=== PATIENT | female | born 1965 | race Caucasian/White ===

== ENCOUNTER 2018-01-12 06:04 | Inpatient (IN) | payer BC, OTHER ==
[2018-01-08 10:20] VITALS: BMI 28.1
[2018-01-12] MEDS ORDERED: oxyCODONE HCL 10 MG SUSTAINED ACTING TABLET PO STA (06:22)
[2018-01-12] MEDS ORDERED: GABAPENTIN 300 MG CAPSULE (FP) PO STA (06:22)
[2018-01-12] MEDS ORDERED: LIDOCAINE 1%/EPI 1:100000 (20 ML MULTI DOSE VIAL) ONE (07:10)
[2018-01-12] MEDS ORDERED: oxyCODONE HCL 10 MG SUSTAINED ACTING TABLET ONE (07:10)
[2018-01-12] MEDS ORDERED: THROMBIN (BOVINE) 5,000 UNIT VIAL TP ONE ×2 (07:10→09:28)
[2018-01-12] MEDS ORDERED: GABAPENTIN 300 MG CAPSULE (FP) ONE (07:11)
--- NOTE | 2018-01-12 07:31 | HP ---
History & Physical Update - History History: No Change - Physical Physical: No Change - Assessment Assessment: No Change - Plan Plan: No Change (Initial H&P is located in patient's paper chart. No new complaints or medications. Here today for repair of her L4/5 spondylolithesis ( Lumbar back pain radiating down bilat LE (L>R).)
[2018-01-12] MEDS ORDERED: DEXAMETHASONE SOD PHOSPHATE 4 MG/1 ML VIAL ONE (07:58)
[2018-01-12] MEDS ORDERED: ONDANSETRON 4 MG/2 ML VIAL ONE (07:58)
[2018-01-12] MEDS ORDERED: ceFAZolin SODIUM 1 GM VIAL ONE (07:58)
[2018-01-12] MEDS ORDERED: fentaNYL CITRATE 250 MCG/5 ML VIAL ONE (07:59)
[2018-01-12] MEDS ORDERED: PROPOFOL 20 ML ONE (07:59)
[2018-01-12] MEDS ORDERED: MIDAZOLAM HCL 2 MG/2 ML SINGLE DOSE VIAL ONE ×3 (07:59→09:50)
[2018-01-12] MEDS ORDERED: ROCURONIUM BROMIDE 50 MG/5 ML VIAL ONE (07:59)
[2018-01-12] MEDS ORDERED: SUCCINYLCHOLINE CHLORIDE 200 MG/10 ML VIAL ONE (08:00)
[2018-01-12] MEDS ORDERED: BUPIVACAINE HCL/PF (5 MG/ML) 30 ML VIAL IJ ONE (08:06)
[2018-01-12] MEDS ORDERED: BUPIVACAINE LIPOSOME/PF (EXPAREL) 266 MG/20 ML VIAL ONE (08:06)
[2018-01-12] MEDS ORDERED: LIDOCAINE 1%/EPI 1:100000 (50 ML MULTI DOSE VIAL) INF ONE (09:00)
[2018-01-12] MEDS ORDERED: GELATIN SPONGE,ABSORBABLE 1 GM PACKET TP ONE (09:29)
--- NOTE | 2018-01-12 10:44 | OP ---
Operative Note - Note: Operative Date: 01/12/18 Pre-Operative Diagnosis: L4/5 spondylolithesis, radiculopathy Operation: L4/5 TLIF, allograft implant, neuro monitoring Post-Operative Diagnosis: Same as Pre-op Surgeon: Fabian Pete Shop Hand: Cecil Lord Anesthesiologist/BOAT ENGINES INSTALLER: Delmer Patton (TLIF) Anesthesia: Spinal Estimated Blood Loss (mls): 20 Fluid Volume Replaced (mls): 1,000 Operative Report Dictated: Yes
--- NOTE | 2018-01-12 10:45 | SURG ---
Surgery Gambling Floor Supervisor Note Gambling Floor Supervisor: Cecil Lord PA-C Date of Service: 01/12/18 Diagnosis: L4/5 spondylolithesis, radiculopathy Procedure: Transforaminal lumbar interbody fusion/decompression/instrumentation L4/5, allograft implant, neuro monitoring I was present for the entirety of the operative procedure. For further detail, please refer to operative report. Visit type - Case Type Case Type: Scheduled - New patient This patient is new to me today: Yes Date on this admission: 01/12/18
[2018-01-12] MEDS ORDERED: ACETAMINOPHEN 325 MG TABLET (FP) PO SCH (11:00)
[2018-01-12] MEDS ORDERED: ACETAMINOPHEN 325 MG TABLET (FP) ONE (11:18)
[2018-01-12] MEDS ORDERED: ONDANSETRON 4 MG/2 ML VIAL IVPUSH PRN (11:26)
[2018-01-12] MEDS ORDERED: oxyCODONE HCL 5 MG TABLET PO PRN (11:26)
[2018-01-12] MEDS ORDERED: LACTATED RINGERS SOLUTION 1,000 ML IV SCH ×2 (11:30→14:30)
[2018-01-12 12:36] VITALS: TEMP 97.5
[2018-01-12] MEDS ORDERED: CEFAZOLIN 1 GM/D5W 1 GM/50 ML BAG ONE (14:26)
[2018-01-12 14:51] VITALS: BP 129/75; PULSE 89
[2018-01-12] MEDS ORDERED: CEFAZOLIN 1 GM/D5W 1 GM/50 ML BAG IVPB ONE (15:00)
[2018-01-12] MEDS ORDERED: traMADol HCL 50 MG TABLET PO SCH (18:00)
--- NOTE | 2018-01-12 19:59 | OP ---
DATE OF OPERATION: 01/12/2018 PREOPERATIVE DIAGNOSES: 1. Spinal stenosis at L4-5. 2. Spondylolisthesis at L4-5. POSTOPERATIVE DIAGNOSES: 1. Spinal stenosis at L4-5. 2. Spondylolisthesis at L4-5. PROCEDURE PERFORMED: 1. Transforaminal lumbar interbody fusion, L4-5. 2. Placement of instrumentation at L4-5. 3. Placement of prosthetic cage. SURGEON: Fabian Pete MD SPECIAL EQUIPMENT TECHNICIAN: QI Jimenez ESTIMATED BLOOD LOSS: 50 mL INTRAVENOUS FLUIDS: Per Anesthesia. ANESTHESIA: Spinal/TLIP. COMPLICATIONS: None. DISPOSITION: Patient brought to the PACU in stable condition. INDICATIONS FOR SURGERY: The patient is a 52-year-old female who has been suffering from pain from her back down her leg. X-rays and MRI were completed which noted that she had spinal stenosis at L4-5 and spondylolisthesis at that level. She had gone through an exhaustive course of treatment for this which included medications, physical therapy, as well as injections. Unfortunately, her pain continued to persist despite all this. At this point, risks, benefits, and alternatives were discussed, and the patient consented to surgery. DESCRIPTION OF PROCEDURE: Patient was brought to the operating room by the anesthesia staff. After appropriate patient identification was performed, spinal anesthesia/TLIP anesthesia was given. Patient was placed prone onto the OR table. She was able to position herself to avoid all bony prominences. Neuromonitoring leads were attached. The C-arm was brought in. The L4 and L5 pedicles were marked off, and 10 mL of lidocaine with epinephrine were injected into her back at this time. Her back was prepped and draped in a sterile manner. At this point, timeout was completed. Incisions were made bilaterally over the L4 and L5 pedicles. Dissection was carried down to the fascia. Fascia was split open at this time. C-arm was brought in. Under C-arm guidance, trocars were advanced into both the L4 and L5 pedicles using C-arm guidance. Once the trocars were in, guidewires were inserted. Trocars removed, and over the guidewire, tap and screws were placed. On the left-hand side, the retractor blades were set up to expose the L4-5 facet joint. This was confirmed with x-ray. The facet joint was removed. The disk was entered. Using a series of pituitaries, Kerrisons, and curettes, a diskectomy was completed. The endplates were decorticated at this time. Bone graft was laid down. A size 8 cage filled with bone graft was placed in. Tulip heads were placed over the screws. A jensen was measured and placed in. Caps were placed on. Compression and final tightening were performed. On the right-hand side, a jensen was measured and placed in. Caps were placed on. Compression and final tightening were performed. All x-ray instrumentation was removed at this time. AP and lateral x-rays confirmed the instrumentation to be in good position. The fascia was closed with a No. 1 Vicryl suture. Subcutaneous tissue was closed with 2-0 Vicryl suture. Skin was closed with 3-0 Monocryl suture. Dermabond was applied. Steri-Strips were applied. A sterile dressing was applied. Patient was placed supine on the OR bed and brought to the PACU in stable condition. Heide [id number]
[2018-01-12] MEDS ORDERED: diazePAM 2 MG TABLET PO SCH (22:00)
== END 2018-01-12 15:40 | disposition home or self-care (01) | DRG 460 ==
LOC: FM/S 06:04
PROVIDERS: ADMIT Orthopaedic Surgery Orthopaedic Surgery of the Spine; ATTEND Orthopaedic Surgery Orthopaedic Surgery of the Spine
PROC: 0SG00AJ Fusion of Lumbar Vertebral Joint with Interbody Fusion Device, Posterior Approach, Anterior Column, Open Approach (ICD-10-PCS; principal; 2018-01-12 08:37)
DX: M43.16 Spondylolisthesis, lumbar region (principal); M54.16 Radiculopathy, lumbar region; M48.061 Spinal stenosis, lumbar region without neurogenic claudication
CPT/HCPCS: 36415; 72100-TC-FY; 76000-TC-FY; 84703; 87389; 94760